=== PATIENT | male | born 2000 | race Caucasian/White ===

== ENCOUNTER 2019-11-27 13:28 | Inpatient (IN) | payer OTHER ==
[~2019-11-27] VITALS: Ht 180.3 cm; Wt 239.2 kg
[2019-11-27 15:52] LABS: BASOPHIL % 0.4 % (0-2); PLATELET COUNT 208 x10^3mcL (130-400)
[2019-11-27 16:13] LABS: CALCIUM 8.5 mg/dL (8.5-10.1); CARBON DIOXIDE 35.3 mmol/L (21-32); CHLORIDE SERUM 102 mmol/L (98-107); CREATININE SERUM 0.6 mg/dL (0.7-1.3); GFR1 > 60 mL/min; GLUCOSE SERUM 87 mg/dL (74-106); SODIUM SERUM 142 mmol/L (136-145)
[2019-11-27 16:15] LABS: RED CELL DISTRIBUTION WIDTH 17.1 % (11.5-14.5)
[2019-11-27 16:31] LABS: ALKALINE PHOSPHATASE 77 U/L (46-116); ALT/SGPT 80 U/L (16-63); AST/SGOT 44 U/L (15-37); BILIRUBIN TOTAL 1.01 mg/dL (0.20-1.00); C REACTIVE PROTEIN 3.6 mg/dL (<=0.9); LACTIC DEHYDROGENASE (LDH) 230 U/L (100-190); TOTAL PROTEIN, SERUM 7.2 g/dL (6.4-8.2)
[2019-11-27 16:35] LABS: ALBUMIN 2.9 g/dL (3.4-5.0)
[2019-11-27 18:08] VITALS: BP 135/85
[2019-11-27 18:10] VITALS: BP 128/78
[2019-11-27 18:21] VITALS: BP 155/95
[2019-11-27 20:32] VITALS: BP 144/94
[2019-11-28] VITALS (7 sets, daily range): BP systolic 128–155; BP diastolic 58–88
[2019-11-28 05:49] LABS: microscopic required? NO
[2019-11-28 06:14] LABS: UA SPECIFIC GRAVITY <=1.005 (1.005-1.035); urine erythrocyte NEGATIVE (NEGATIVE)
[2019-11-28 06:24] LABS: AMPHETAMINE QUAL UR NONE DETECTED (See below)
[2019-11-28 07:28] LABS: PLATELET COUNT 259 x10^3mcL (130-400)
[2019-11-28 07:30] LABS: BASOPHIL % 0 % (0-2); RED CELL DISTRIBUTION WIDTH 17.8 % (11.5-14.5)
[2019-11-28 08:04] LABS: CALCIUM 8.9 mg/dL (8.5-10.1); CARBON DIOXIDE 35.6 mmol/L (21-32); CHLORIDE SERUM 103 mmol/L (98-107); CREATININE SERUM 0.7 mg/dL (0.7-1.3); GFR1 > 60 mL/min; GLUCOSE SERUM 142 mg/dL (74-106); POTASSIUM SERUM 5.3 mmol/L (3.5-5.1); SODIUM SERUM 142 mmol/L (136-145)
[2019-11-28 08:07] LABS: PHOSPHOROUS 5.4 mg/dL (2.5-4.9)
[2019-11-28 12:31] LABS: rbc morphology (normal/abnorm) ABNORMAL (NORMAL)
[2019-11-29 06:04] VITALS: BP 101/68
[2019-11-29 06:33] LABS: PLATELET COUNT 241 x10^3mcL (130-400)
[2019-11-29 07:12] LABS: ALKALINE PHOSPHATASE 64 U/L (46-116); ALT/SGPT 65 U/L (16-63); AST/SGOT 36 U/L (15-37); BILIRUBIN TOTAL 0.6 mg/dL (0.20-1.00); CALCIUM 8.7 mg/dL (8.5-10.1); CARBON DIOXIDE 36.1 mmol/L (21-32); CHLORIDE SERUM 102 mmol/L (98-107); CREATININE SERUM 0.7 mg/dL (0.7-1.3); GFR1 > 60 mL/min; GLUCOSE SERUM 151 mg/dL (74-106); PHOSPHOROUS 5.4 mg/dL (2.5-4.9); POTASSIUM SERUM 4.4 mmol/L (3.5-5.1); SODIUM SERUM 143 mmol/L (136-145); TOTAL PROTEIN, SERUM 7.2 g/dL (6.4-8.2)
[2019-11-29 07:15] LABS: ALBUMIN 2.9 g/dL (3.4-5.0)
[2019-11-29 07:52] LABS: MAGNESIUM 2.2 mg/dL (1.8-2.4)
[2019-11-29 08:15] LABS: BASOPHIL % 0 % (0-2); RED CELL DISTRIBUTION WIDTH 16.8 % (11.5-14.5)
[2019-11-29 08:20] VITALS: BP 130/70
[2019-11-29 10:54] VITALS: Ht 180.3 cm; Wt 239.2 kg
[2019-11-29 11:59] VITALS: BP 103/39
[2019-11-29 17:24] VITALS: BP 117/58
[2019-11-29 20:14] VITALS: BP 121/51
[2019-11-30 05:59] VITALS: BP 139/74
[2019-11-30 06:48] LABS: ALKALINE PHOSPHATASE 62 U/L (46-116); ALT/SGPT 55 U/L (16-63); AST/SGOT 21 U/L (15-37); BILIRUBIN TOTAL 0.81 mg/dL (0.20-1.00); CARBON DIOXIDE 37.9 mmol/L (21-32); CHLORIDE SERUM 102 mmol/L (98-107); CREATININE SERUM 0.7 mg/dL (0.7-1.3); GFR1 > 60 mL/min; GLUCOSE SERUM 137 mg/dL (74-106); MAGNESIUM 2.3 mg/dL (1.8-2.4); PHOSPHOROUS 4.9 mg/dL (2.5-4.9); POTASSIUM SERUM 4.5 mmol/L (3.5-5.1); SODIUM SERUM 143 mmol/L (136-145); TOTAL PROTEIN, SERUM 7.3 g/dL (6.4-8.2)
[2019-11-30 07:34] LABS: BASOPHIL % 0.1 % (0-2); PLATELET COUNT 238 x10^3mcL (130-400)
[2019-11-30 07:45] LABS: RED CELL DISTRIBUTION WIDTH 16.7 % (11.5-14.5)
[2019-11-30 08:43] VITALS: BP 135/97
[2019-11-30 12:17] VITALS: BP 129/74
[2019-11-30 17:38] VITALS: BP 135/67
[2019-11-30 20:00] VITALS: BP 113/58
[2019-12-01 05:59] VITALS: BP 132/70
[2019-12-01 08:30] VITALS: BP 106/56
[2019-12-01 12:35] VITALS: BP 130/80
[2019-12-01 15:03] VITALS: BP 130/80
[2019-12-01 17:19] VITALS: BP 102/43
[2019-12-01 20:49] VITALS: BP 134/54
[2019-12-02 04:59] VITALS: BP 112/53
[2019-12-02 09:12] VITALS: BP 115/53
[2019-12-02 13:13] VITALS: BP 110/65
[2019-12-02 17:31] VITALS: BP 130/70
[2019-12-02 19:12] VITALS: BP 116/56
[2019-12-03 05:30] VITALS: BP 94/59
[2019-12-03 06:29] LABS: BASOPHIL % 0.3 % (0-2); PLATELET COUNT 301 x10^3mcL (130-400)
[2019-12-03 06:44] LABS: CALCIUM 9.4 mg/dL (8.5-10.1); CARBON DIOXIDE 34.5 mmol/L (21-32); CHLORIDE SERUM 99 mmol/L (98-107); CREATININE SERUM 0.7 mg/dL (0.7-1.3); GFR1 > 60 mL/min; GLUCOSE SERUM 117 mg/dL (74-106); POTASSIUM SERUM 4.4 mmol/L (3.5-5.1); SODIUM SERUM 142 mmol/L (136-145)
[2019-12-03 07:32] LABS: RED CELL DISTRIBUTION WIDTH 17.5 % (11.5-14.5)
[2019-12-03 07:37] VITALS: BP 114/68
[2019-12-03 09:38] LABS: rbc morphology (normal/abnorm) ABNORMAL (NORMAL)
[2019-12-03] MEDS ORDERED: DELTASONE20 MG PO (12:03)
[2019-12-03] MEDS ORDERED: MONTELUKAST SOD10 M1 PO (12:04)
[2019-12-03] MEDS ORDERED: BREO ELLIPTA1 PO1 IH (12:06)
[2019-12-03] MEDS ORDERED: LEVOFLOXACIN500 M1 PO (12:06)
[2019-12-03 13:15] VITALS: BP 114/68
== END 2019-12-03 13:37 | disposition home or self-care (01) | DRG 720 ==
LOC: ED 13:28 → DU 16:19
PROVIDERS: Emergency Medicine; Family Medicine; ADMIT Internal Medicine
DX: A41.9 Sepsis, unspecified organism (principal); J96.01 Acute respiratory failure with hypoxia; E44.0 Moderate protein-calorie malnutrition; J18.9 Pneumonia, unspecified organism; J45.901 Unspecified asthma with (acute) exacerbation; E83.39 Other disorders of phosphorus metabolism; E66.2 Morbid (severe) obesity with alveolar hypoventilation; E87.5 Hyperkalemia; Z68.43 Body mass index [BMI] 50.0-59.9, adult; J98.11 Atelectasis; Z87.891 Personal history of nicotine dependence; Z71.3 Dietary counseling and surveillance
CPT/HCPCS: 36600; 87804; 90658; 94150; 97116-GP; A4628; G0378; J0456; J0696; J1644; J1940; J2920; J2930; J3535; J7040; J7050; J7060; Q0092